=== PATIENT | female | born 1935 | race Caucasian/White ===

== ENCOUNTER 2016-10-03 13:50 | Emergency (ER) | payer OTHER ==
[~2016-10-03] VITALS: Wt 90.7 kg
[~2016-10-03 13:50] MED LIST: ASPIRIN ADULT L81 M1 PO; AVPAK AZITHROM250 MG PO; BUSPAR5 MG PO; DULCOLAX10 M1 RC; Fioricet 325 MG1 TAB PO; HYDROXYZINE PAM25 M1 PO; IBUPROFEN600 MG PO; LISINOPRIL20 MG PO; MELATONIN5 M1 SL; MILK OF MA400 MG/51 PO; NORCO 325 MG-51 TAB PO; OCUVITE1 TA1 PO; OMEPRAZOLE D/R20 MG PO; OMEPRAZOLE DR20 MG PO; PRILOSEC20 M2 PO; PRINIVIL20 M1 PO; SERTRALINE HYD100 MG PO; SYSTANE 0.3-0.415 ML OP; TYLENOL325 M2 PO; ZOLOFT100 MG PO; ZOLOFT50 MG PO
[2016-10-03] MEDS ORDERED: BUSPIRONE10 MG PO (14:05)
[2016-10-03 14:24] LABS: BASO % 0.5 % (0.0-1.0); EOS # 0.1 10*3/uL (0.0-0.4); HEMATOCRIT 41.8 % (37.0-47.0); HEMOGLOBIN 13.9 g/dl (12.0-16.0); LYMPH # 1.1 10*3/uL (1.3-4.4); LYMPH % 18.6 % (27.0-41.0); MEAN CELL VOLUME 91.5 fl (81.0-99.0); MEAN CORPUSCULAR HGB 30.4 pg (27.0-31.0); MEAN CORPUSCULAR HGB CONC 33.3 g/dl (33.0-37.0); MEAN PLATELET VOLUME 9.9 fl (9.6-12.3); MONO # 0.6 10*3/uL (0.1-1.0); MONO % 9.1 % (3.0-9.0); NEUT # 4.3 10*3/uL (2.3-7.9); NEUT % 70.6 % (47.0-73.0); PLATELET COUNT AUTOMATED 198 10*3/uL (130-400); RED BLOOD COUNT 4.57 10*6/uL (4.10-5.10); RED CELL DISTRI WIDTH 13.4 % (0-14.5)
[2016-10-03 14:34] LABS: PROTHROMBIN TIME 10.2 SECONDS (9.0-12.4)
[2016-10-03 14:39] LABS: ALBUMIN 3.6 gm/dl (3.1-4.5); ALKALINE PHOSPHATASE 82 U/L (45-117); BILIRUBIN, TOTAL 0.3 mg/dl (0.2-1.0); BUN 13 mg/dl (7-24); CARBON DIOXIDE 25 mmol/L (21-32); CHLORIDE 100 mmol/L (98-107); CKMB 1.2 ng/ml (0.5-3.6); CPK 61 U/L (26-192); EST GLOM FILT AFRICAN AMERICAN > 60 ml/min; GLUCOSE 77 mg/dL (65-99); LDH 168 U/L (84-246); MAGNESIUM 1.9 mg/dL (1.5-2.1); POTASSIUM 4.3 mmol/L (3.5-5.1); SGOT/AST 17 IU/L (3-35); SGPT/ALT 14 U/L (12-78); SODIUM 136 mmol/L (136-145); TOTAL PROTEIN 7.2 gm/dL (6.4-8.2)
[2016-10-03 14:40] LABS: TROPONIN I < 0.015 ng/ml (<0.045)
[2016-10-03 15:56] VITALS: BP 132/82
== END 2016-10-03 16:14 | disposition other institution (70) ==
LOC: ED 13:50
PROVIDERS: Physician Assistant
DX: R07.9 Chest pain, unspecified (principal); Z79.899 Other long term (current) drug therapy; Z88.0 Allergy status to penicillin; Z88.8 Allergy status to other drugs, medicaments and biological substances; Z79.82 Long term (current) use of aspirin

== ENCOUNTER 2016-10-15 19:00 | Emergency (ER) | payer OTHER ==
[~2016-10-15] VITALS: Ht 172.7 cm; Wt 81.6 kg
[~2016-10-15 19:00] MED LIST changes: +BUSPIRONE10 MG PO
[2016-10-15 19:02] VITALS: BP 122/66
[2016-10-15] MEDS ORDERED: OCUVITE1 TA1 PO (19:17)
== END 2016-10-15 20:46 ==
LOC: ED 19:00
DX: S00.03XA Contusion of scalp, initial encounter (principal); Z88.0 Allergy status to penicillin; Z88.8 Allergy status to other drugs, medicaments and biological substances; Z79.899 Other long term (current) drug therapy; Z79.82 Long term (current) use of aspirin; W01.198A Fall on same level from slipping, tripping and stumbling with subsequent striking against other object, initial encounter; Y93.89 Activity, other specified; Y92.89 Other specified places as the place of occurrence of the external cause; Y99.8 Other external cause status

== ENCOUNTER 2017-09-09 22:06 | Emergency (ER) | payer OTHER ==
[~2017-09-09] VITALS: Ht 167.6 cm; Wt 95.3 kg
[2017-09-09 22:08] VITALS: BP 157/94
[2017-09-09 22:57] LABS: BASO # 0.1 10*3/uL (0.0-0.1); BASO % 0.9 % (0.0-1.0); EOS # 0.1 10*3/uL (0.0-0.4); EOS % 2.1 % (1.0-4.0); HEMATOCRIT 40.5 % (37.0-47.0); HEMOGLOBIN 13.5 g/dl (12.0-16.0); LYMPH # 1.9 10*3/uL (1.3-4.4); LYMPH % 33.4 % (27.0-41.0); MEAN CELL VOLUME 91.8 fl (81.0-99.0); MEAN CORPUSCULAR HGB 30.6 pg (27.0-31.0); MEAN CORPUSCULAR HGB CONC 33.3 g/dl (33.0-37.0); MEAN PLATELET VOLUME 10.4 fl (9.6-12.3); MONO # 0.5 10*3/uL (0.1-1.0); MONO % 8.3 % (3.0-9.0); NEUT # 3.2 10*3/uL (2.3-7.9); PLATELET COUNT AUTOMATED 187 10*3/uL (130-400); RED BLOOD COUNT 4.41 10*6/uL (4.10-5.10); RED CELL DISTRI WIDTH 13.5 % (0-14.5); WHITE BLOOD COUNT 5.8 10*3/uL (4.8-10.8)
[2017-09-09 23:07] LABS: ACT PARTIAL THROMBO TIME 24.4 SECONDS (20.8-31.5)
== END 2017-09-09 22:44 | disposition home or self-care (01) ==
LOC: ED 22:06
PROVIDERS: Emergency Medicine Emergency Medical Services
DX: R04.0 Epistaxis (principal); F03.90 Unspecified dementia, unspecified severity, without behavioral disturbance, psychotic disturbance, mood disturbance, and anxiety; Z90.710 Acquired absence of both cervix and uterus; Z98.890 Other specified postprocedural states; Z79.899 Other long term (current) drug therapy; Z88.0 Allergy status to penicillin; Z88.8 Allergy status to other drugs, medicaments and biological substances; Z79.82 Long term (current) use of aspirin

== ENCOUNTER 2017-09-19 00:06 | Emergency (ER) | payer OTHER ==
[~2017-09-19] VITALS: Wt 90.7 kg
[2017-09-19 00:42] LABS: BASO % 0.6 % (0.0-1.0); EOS # 0.1 10*3/uL (0.0-0.4); EOS % 1.9 % (1.0-4.0); HEMOGLOBIN 13.1 g/dl (12.0-16.0); LYMPH # 2.1 10*3/uL (1.3-4.4); LYMPH % 33.4 % (27.0-41.0); MEAN CELL VOLUME 93.2 fl (81.0-99.0); MEAN CORPUSCULAR HGB 30.5 pg (27.0-31.0); MEAN CORPUSCULAR HGB CONC 32.8 g/dl (33.0-37.0); MEAN PLATELET VOLUME 10.2 fl (9.6-12.3); MONO # 0.5 10*3/uL (0.1-1.0); MONO % 8.1 % (3.0-9.0); NEUT # 3.5 10*3/uL (2.3-7.9); NEUT % 55.7 % (47.0-73.0); PLATELET COUNT AUTOMATED 168 10*3/uL (130-400); RED BLOOD COUNT 4.29 10*6/uL (4.10-5.10); RED CELL DISTRI WIDTH 13.4 % (0-14.5); WHITE BLOOD COUNT 6.2 10*3/uL (4.8-10.8)
[2017-09-19 00:48] LABS: BILIRUBIN NEGATIVE (NEGATIVE); BLOOD NEGATIVE (NEGATIVE); CLARITY CLEAR (CLEAR); COLOR YELLOW (YELLOW); GLUCOSE NEGATIVE (NEGATIVE); KETONE NEGATIVE (NEGATIVE); LEUKO ESTERASE 1+ (NEGATIVE); NITRITE NEGATIVE (NEGATIVE); SPECIFIC GRAVITY <= 1.005 (1.005-1.030); UROBILINOGEN 0.2 E.U./dl (0.2-1.0)
[2017-09-19 00:51] LABS: ACT PARTIAL THROMBO TIME 24.1 SECONDS (20.8-31.5); INTERNATIONAL NORM RATIO 0.9 (2.0-3.5)
[2017-09-19 00:58] LABS: ALBUMIN 3.8 gm/dl (3.1-4.5); ALKALINE PHOSPHATASE 84 U/L (45-117); BUN 15 mg/dl (7-24); CHLORIDE 99 mmol/L (98-107); CREATININE 0.77 mg/dL (0.55-1.02); POTASSIUM 4.2 mmol/L (3.5-5.1); SGOT/AST 14 IU/L (3-35); SGPT/ALT 13 U/L (12-78); SODIUM 135 mmol/L (136-145); TOTAL PROTEIN 7.2 gm/dL (6.4-8.2)
[2017-09-19 00:59] LABS: TROPONIN I < 0.015 ng/ml (<0.045)
[2017-09-19 02:00] VITALS: BP 120/72
== END 2017-09-19 02:19 | disposition other institution (70) ==
LOC: ED 00:06
PROVIDERS: Physician Assistant
DX: M25.551 Pain in right hip (principal); M25.511 Pain in right shoulder; G30.9 Alzheimer's disease, unspecified; F02.80 Dementia in other diseases classified elsewhere, unspecified severity, without behavioral disturbance, psychotic disturbance, mood disturbance, and anxiety; Z90.710 Acquired absence of both cervix and uterus; Z98.890 Other specified postprocedural states; Z79.899 Other long term (current) drug therapy; Z88.0 Allergy status to penicillin; Z88.8 Allergy status to other drugs, medicaments and biological substances; Z79.82 Long term (current) use of aspirin; W19.XXXA Unspecified fall, initial encounter; Y93.89 Activity, other specified; Y92.128 Other place in nursing home as the place of occurrence of the external cause; Y99.9 Unspecified external cause status

== ENCOUNTER 2017-11-25 10:30 | Emergency (ER) | payer OTHER ==
[~2017-11-25] VITALS: Wt 77.1 kg
--- NOTE | ~2017-11-25 | EKG ---
[place], [place] ELECTROCARDIOGRAM REPORT NAME: FABIOLA SERNA UNIT #: [id number] ROOM: DOCTOR: EPIPHANY DRAFT REPORT BIRTHDATE: [birth year] [facility] Test Date: 2017-11-25 Test Time: 10:39:10 Pat Name: FABIOLA SERNA Department: Room: Gender: F Staffing Executive: JAMAL : 1935 Requested By: JENNIFER GILLIS Order Number: [id number] Reading MD: Rebel Live MD Measurements Intervals [place] Rate: 64 P: 31 SC: 182 QRS: 71 QRSD: 80 T: 44 QT: 427 QTc: 441 Interpretive Statements Sinus rhythm Low voltage, extremity leads Electronically Signed On 11-28-2017 8:17:33 PDT by Rebel Live MD CM:EKGRPT:ELECTROCARDIOGRAM REPORT [id number] JENNIFER BARRAGAN DRAFT REPORT JENNIFER GILLIS M.D.
--- NOTE | ~2017-11-25 | EKG ---
[place], [place] ELECTROCARDIOGRAM REPORT NAME: FABIOLA SERNA UNIT #: [id number] ROOM: DOCTOR: EPIPHANY DRAFT REPORT BIRTHDATE: [birth year] [facility] Test Date: 2017-11-25 Test Time: 13:17:31 Pat Name: FABIOLA SERNA Department: Room: Gender: F Microwave Technician: FELICIANO : 1935 Requested By: JENNIFER GILLIS Order Number: [id number] Reading MD: Rebel Live MD Measurements Intervals [place] Rate: 68 P: 67 SD: 173 QRS: 27 QRSD: 80 T: 47 QT: 415 QTc: 442 Interpretive Statements Sinus rhythm Borderline low voltage, extremity leads Electronically Signed On 11-28-2017 8:18:30 PDT by Rebel Live MD CM:EKGRPT:ELECTROCARDIOGRAM REPORT 1317 JENNIFER BARRAGAN DRAFT REPORT JENNIFER GILLIS M.D.
[2017-11-25] MEDS ORDERED: BUSPAR5 MG PO (10:53)
[2017-11-25] MEDS ORDERED: AFRIN15 ML NAS (10:55)
[2017-11-25] MEDS ORDERED: NEURONTIN100 MG PO (10:56)
[2017-11-25] MEDS ORDERED: ONDANSETRON8 MG PO (10:57)
[2017-11-25] MEDS ORDERED: PROSIGHT TABLE1 EACH PO (10:59)
[2017-11-25] MEDS ORDERED: TRAZODONE50 MG PO (11:00)
[2017-11-25 11:34] LABS: BASO % 0.6 % (0.0-1.0); EOS # 0.1 10*3/uL (0.0-0.4); EOS % 1.5 % (1.0-4.0); HEMATOCRIT 41.8 % (37.0-47.0); HEMOGLOBIN 13.9 g/dl (12.0-16.0); LYMPH # 1.2 10*3/uL (1.3-4.4); LYMPH % 23.2 % (27.0-41.0); MEAN CELL VOLUME 93.3 fl (81.0-99.0); MEAN CORPUSCULAR HGB CONC 33.3 g/dl (33.0-37.0); MONO # 0.5 10*3/uL (0.1-1.0); MONO % 8.6 % (3.0-9.0); NEUT # 3.4 10*3/uL (2.3-7.9); NEUT % 65.7 % (47.0-73.0); PLATELET COUNT AUTOMATED 192 10*3/uL (130-400); RED BLOOD COUNT 4.48 10*6/uL (4.10-5.10); WHITE BLOOD COUNT 5.2 10*3/uL (4.8-10.8)
[2017-11-25 11:43] LABS: ACT PARTIAL THROMBO TIME 21.6 SECONDS (20.8-31.5); INTERNATIONAL NORM RATIO 0.9 (2.0-3.5)
[2017-11-25 11:50] LABS: ALBUMIN 3.8 gm/dl (3.1-4.5); ALKALINE PHOSPHATASE 78 U/L (45-117); BUN 8 mg/dl (7-24); CHLORIDE 97 mmol/L (98-107); CREATININE 0.67 mg/dL (0.55-1.02); POTASSIUM 4.2 mmol/L (3.5-5.1); SGOT/AST 12 IU/L (3-35); SGPT/ALT 15 U/L (12-78); SODIUM 131 mmol/L (136-145); TOTAL PROTEIN 7.3 gm/dL (6.4-8.2)
[2017-11-25 11:52] LABS: TROPONIN I < 0.015 ng/ml (<0.045)
[2017-11-25 12:00] VITALS: BP 132/72
== END 2017-11-25 13:30 | disposition home or self-care (01) ==
LOC: ED 10:30
PROVIDERS: Nurse Practitioner Family
DX: R07.89 Other chest pain (principal); Z90.710 Acquired absence of both cervix and uterus; Z88.0 Allergy status to penicillin; Z98.890 Other specified postprocedural states; Z79.899 Other long term (current) drug therapy; Z88.1 Allergy status to other antibiotic agents; Z79.82 Long term (current) use of aspirin

== ENCOUNTER 2018-03-09 18:08 | Inpatient (IN) | payer OTHER ==
[~2018-03-09] VITALS: Wt 56.7 kg
--- NOTE | ~2018-03-09 | WRIGHTHP ---
[place], [place] PATIENT HISTORY AND PHYSICAL EXAM [id number] UNIT #: [id number] ROOM: 420 DOCTOR: JENY DIAZ MD BIRTHDATE: [birth year] DOS: 03/09/2018 HISTORY OF PRESENT ILLNESS: The patient is an 82-year-old female with a past medical history of: 1. COPD. 2. Coronary artery disease of the [place] vessels. 3. GERD and esophagitis. 4. Old age and disability and ambulatory dysfunction. 5. Benign essential hypertension. 6. Generalized anxiety disorder. 7. Late onset Alzheimer's type dementia and some behavioral issues. The patient started having what appeared like generalized seizures at [facility] where she stays. The patient was unable to swallow and maintained a comfort care code status. Treatment was ordered, but could not be performed, so she was ultimately transferred to the Emergency Department where CT of the head showed a heterogenous attenuation of the left temporal lobe, possible mass in the left temporal area measuring 4 x 3.5 cm, not seen before. An MRI of the brain was recommended and the patient was admitted for control of her seizures. The patient was given 1 gram of IV Keppra in the Emergency Department, but she continued to have unconsciousness and seizures and paralysis. After admission, the patient was loaded with IV dose of Depakote and she still continues to have seizures and remains unresponsive. The patient was given IV Ativan with same results. Case was discussed with Sherie, the patient's appointed guardian and she has agreed to hospice care. I will do an MRI of the brain to confirm the diagnosis and then patient will be evaluated by hospice. No recent chest pain. No increasing shortness of breath or any other GI or urinary symptoms. FAMILY HISTORY: Noncontributory. MEDICATIONS: The patient is presently on Depakote and lorazepam. Her long term medications were Nasacort, Tylenol, buspirone, gabapentin, Keppra which was never given magnesium, Zofran, Zoloft, trazodone and Dulcolax. PHYSICAL EXAMINATION: VITAL SIGNS: Blood pressure 167/90, heart rate 85 beats per minute, breathing 19 times per minute, temperature 98 degrees Fahrenheit. GENERAL: The patient is unresponsive with head tilted to the left. HEENT AND NECK: Extraocular movements are intact. Sclerae are anicteric. Oral mucosa is moist and clean. No obvious facial weakness. Neck is supple without any lymphadenopathy. No thyromegaly. No JVD. No carotid arterial bruits. CARDIOVASCULAR SYSTEM: Shows irregular heart rate. S1 and S2 normally audible. No significant murmur or any other abnormal cardiac sounds. ABDOMEN: Soft, nontender. No obvious organomegaly. Bowel sounds are present. No obvious herniation. CENTRAL NERVOUS SYSTEM: The patient is unresponsive and not moving her extremities. She is having some jerking movements of her head. [place], [place] PATIENT HISTORY AND PHYSICAL EXAM NAME: FABIOLA SERNA UNIT #: [id number] ROOM: 420 DOCTOR: JENY DIAZ MD BIRTHDATE: [birth year] LABORATORY DATA: Depakote level now therapeutic at 64.6. Chest x-ray is showing no acute abnormality. CBC was normal. CT of the head results as mentioned above. IMPRESSION AND PLAN: 1. Generalized seizures and unconsciousness. 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 I am reconfirming this with MRI of the brain. Case discussed with Sherie, patient's appointed guardian and she is agreeing to end of life care with hospice, who will evaluate the patient. If MRI of the brain confirms some mass, she will be readmitted to the hospital as a hospice inpatient. 2. Recent infection with Escherichia coli involving the urine. Cultures were performed and treated 4 days back with antibiotic. 3. No leukocytosis. 4. Coronary artery disease of the [place] vessels, without chest pain. 5. Chronic obstructive pulmonary disease and centrilobular emphysema, presently asymptomatic. 6. Benign essential hypertension with elevated blood pressures. I will start her on a clonidine patch. 7. Late onset Alzheimer's type dementia and some mental confusion and behavioral disturbances. The patient is presently unresponsive. 8. We will take bedsore precautions, turn patient every 2 hours and take fall precautions. More than 1 hour time spent on patient's management. JENY DIAZ MD CM:HISPHYS:PATIENT HISTORY AND PHYSICAL EXAMINATION [id number] JENY DIAZ MD 03/10/18 1203 interface
[~2018-03-09 18:08] MED LIST changes: +AFRIN15 ML NAS; +NEURONTIN100 MG PO; +ONDANSETRON8 MG PO; +PROSIGHT TABLE1 EACH PO; +TRAZODONE50 MG PO
[2018-03-09 18:11] VITALS: BP 169/97
[2018-03-09 18:54] LABS: BILIRUBIN NEGATIVE (NEGATIVE); BLOOD NEGATIVE (NEGATIVE); CLARITY CLOUDY (CLEAR); COLOR YELLOW (YELLOW); GLUCOSE NEGATIVE (NEGATIVE); KETONE TRACE (NEGATIVE); LEUKO ESTERASE 1+ (NEGATIVE); NITRITE POSITIVE (NEGATIVE); SPECIFIC GRAVITY 1.025 (1.005-1.030); UROBILINOGEN 0.2 E.U./dl (0.2-1.0)
[2018-03-09 19:03] LABS: HEMATOCRIT 44.3 % (37.0-47.0); HEMOGLOBIN 15.1 g/dl (12.0-16.0); MEAN CORPUSCULAR HGB CONC 34.1 g/dl (33.0-37.0); PLATELET COUNT AUTOMATED 300 10*3/uL (130-400); RED BLOOD COUNT 4.87 10*6/uL (4.10-5.10); RED CELL DISTRI WIDTH 13.8 % (0-14.5); WHITE BLOOD COUNT 9.4 10*3/uL (4.8-10.8)
[2018-03-09 19:04] LABS: BACTERIA 3+
[2018-03-09 19:05] LABS: RBC 0-2 rbc/hpf (0-2)
[2018-03-09 19:07] VITALS: BP 163/67
[2018-03-09 19:18] LABS: ALBUMIN 3.3 gm/dl (3.1-4.5); ALKALINE PHOSPHATASE 72 U/L (45-117); BUN 29 mg/dl (7-24); CHLORIDE 98 mmol/L (98-107); CREATININE 0.76 mg/dL (0.55-1.02); POTASSIUM 3.7 mmol/L (3.5-5.1); SGOT/AST 17 IU/L (3-35); SGPT/ALT 17 U/L (12-78); SODIUM 136 mmol/L (136-145); TOTAL PROTEIN 7.5 gm/dL (6.4-8.2)
[2018-03-09 19:29] LABS: PLATELET SUFFICIENCY NORMAL (NORMAL); TOTAL CELLS COUNTED 100 #CELLS
[2018-03-09 19:57] VITALS: BP 179/97
[2018-03-09 20:15] VITALS: BP 180/88
[2018-03-09 20:30] VITALS: BP 180/88
[2018-03-09] MEDS ORDERED: MAPAP500 MG PO (21:30)
[2018-03-09] MEDS ORDERED: BUSPAR5 MG PO (21:31)
[2018-03-09] MEDS ORDERED: DULCOLAX10 M1 R (21:31)
[2018-03-09] MEDS ORDERED: NEURONTIN100 MG PO (21:32)
[2018-03-09] MEDS ORDERED: MILK OF MA400 MG/5 M PO (21:33)
[2018-03-09] MEDS ORDERED: KEPPRA500 MG/5 M PO (21:34)
[2018-03-09] MEDS ORDERED: NASAL DECONGEST15 ML NAS (21:35)
[2018-03-09] MEDS ORDERED: AFRIN15 ML NAS (21:35)
[2018-03-09] MEDS ORDERED: TRAZODONE50 MG PO (21:36)
[2018-03-09] MEDS ORDERED: SERTRALINE HYDR50 MG PO (21:36)
[2018-03-09] MEDS ORDERED: ZOFRAN8 M1 PO (21:37)
[2018-03-10] VITALS: BP 179/95
[2018-03-10 08:00] VITALS: BP 167/90
[2018-03-10 12:00] VITALS: BP 166/91
[2018-03-10 16:00] VITALS: BP 170/96
== END 2018-03-10 16:48 | disposition hospice, home (50) | DRG 80 ==
LOC: ED 18:08 → EDHOLD 19:49 → 4E 20:22
PROVIDERS: Emergency Medicine
DX: G93.6 Cerebral edema (principal); I63.9 Cerebral infarction, unspecified; F02.81 Dementia in other diseases classified elsewhere, unspecified severity, with behavioral disturbance; R56.9 Unspecified convulsions; G30.1 Alzheimer's disease with late onset; I10 Essential (primary) hypertension; I25.10 Atherosclerotic heart disease of native coronary artery without angina pectoris; K21.0 Gastro-esophageal reflux disease with esophagitis; F41.1 Generalized anxiety disorder; J43.2 Centrilobular emphysema; G93.89 Other specified disorders of brain; Z66 Do not resuscitate; Z51.5 Encounter for palliative care; Z87.81 Personal history of (healed) traumatic fracture; Z87.440 Personal history of urinary (tract) infections; Z86.73 Personal history of transient ischemic attack (TIA), and cerebral infarction without residual deficits; Z91.81 History of falling; Z88.0 Allergy status to penicillin; Z88.6 Allergy status to analgesic agent; Z90.710 Acquired absence of both cervix and uterus; Z90.49 Acquired absence of other specified parts of digestive tract; Z90.3 Acquired absence of stomach [part of]; Z82.49 Family history of ischemic heart disease and other diseases of the circulatory system

== ENCOUNTER 2018-03-10 16:59 | Inpatient (IN) | payer OTHER ==
[~2018-03-10] VITALS: Ht 157.5 cm; Wt 56.7 kg
--- NOTE | ~2018-03-10 | WRIGHTHP ---
[place], [place] PATIENT HISTORY AND PHYSICAL EXAM [id number] UNIT #: [id number] ROOM: 420 DOCTOR: JENY DIAZ MD BIRTHDATE: [birth year] DOS: HISTORY OF PRESENT ILLNESS: The patient readmitted under the care of community hospice on 03/10/2018 after being discharged to the regular hospital patient for end-of-life care: 1. 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 2. Chronic obstructive pulmonary disease. 3. Coronary artery disease of the [place] vessels. 4. Gastroesophageal reflux disease and esophagitis. 5. Old age disability and ambulatory dysfunction. 6. Benign essential hypertension. 7. Generalized anxiety disorder. 8. Late onset Alzheimer's type dementia and some behavioral issues. The patient was having seizures with unconsciousness and was found to have a left temporal infarct as well as edema. The patient was unable to swallow any medication and was given loading dose of Keppra in the Emergency Department, but the patient continued to have seizures after which she was given a loading dose of Depakote and the patient was still having seizures. The patient was given Ativan, which did not stop the seizures. 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 [facility] hospice has accepted the patient and the patient was discharged from regular hospital admission and readmitted as in hospice inpatient at [facility] yesterday. The patient was started on morphine, kept on intravenous Keppra and lorazepam and the patient's seizures appear to have resolved. The patient is sleeping comfortably. The patient's daughter is present with her. REVIEW OF SYSTEMS: LUNGS: No increasing shortness of breath. GASTROINTESTINAL: No nausea, vomiting, diarrhea or constipation. CARDIOVASCULAR: No chest pains or palpitations. FAMILY HISTORY: Noncontributory. PRESENT MEDICATIONS: Morphine, lorazepam, dexamethasone and Keppra. ALLERGIES: Known allergies to QUININE and PENICILLIN. FAMILY HISTORY: Noncontributory. PHYSICAL EXAMINATION: GENERAL: The patient is sedated without seizures now and comfortable. The patient is unresponsive and not moving. VITAL SIGNS: Blood pressure 143/80, heart rate 109 beats per minute, breathing 24 times per minute, afebrile. HEENT AND NECK: Extraocular movements are intact. Sclerae are anicteric. Oral mucosa is moist and clean. No obvious facial weakness. Neck is supple without any lymphadenopathy. No thyromegaly. No JVD. No carotid arterial bruits. [place], [place] PATIENT HISTORY AND PHYSICAL EXAM NAME: FABIOLA SERNA UNIT #: [id number] ROOM: 420 DOCTOR: JENY DAIZ MD BIRTHDATE: [birth year] LUNGS: Clear to auscultation. No wheezing. No rhonchi. CARDIOVASCULAR SYSTEM: Heart rate is regular in rate and rhythm. S1 and S2 normally audible. No significant murmur or any other abnormal cardiac sounds. ABDOMEN: Soft, nontender. No obvious organomegaly. Bowel sounds are present. No obvious herniation. EXTREMITIES: Without significant cyanosis or edema. Warm to touch. CENTRAL NERVOUS SYSTEM: Alert and oriented x 3. Cranial nerves II-XII are intact. Speech is normal. The patient is able to move all extremities. Normal muscle strength. Deep tendon reflexes are equal on both sides. Plantars were downgoing. IMPRESSION: The patient for end-of-life care after left temporal infarct and uncontrolled seizures, which have not been controlled with Ativan, Keppra, morphine, and the patient receiving corticosteroids. Irregular dose of morphine is being added and the patient being watched carefully at the hospital as an inpatient. Benign essential hypertension with better controlled blood pressures now. The patient is unconscious and unresponsive, recent urinary tract infection with gram-negative bacilli and was treated earlier with antibiotics. JENY DIAZ MD CM:HISPHYS:PATIENT HISTORY AND PHYSICAL EXAMINATION [id number] JENY DIAZ MD 03/11/18 1700 interface
--- NOTE | ~2018-03-10 | PR ---
[place], [place] PROGRESS NOTE NAME: FABIOLA SERNA UNIT #: [id number] ROOM: 420 DOCTOR: JENY DIAZ MD BIRTHDATE: [birth year] DOS: 03/12/2018 SUBJECTIVE: The patient remains unresponsive and appears comfortable with sedation. PHYSICAL EXAMINATION: GENERAL APPEARANCE: The patient is unresponsive and breathing somewhat heavy with facial bruising, no seizures. VITAL SIGNS: Blood pressure 151/91, heart rate 112 beats per minute, breathing 24 times per minute, temperature 98 degrees Fahrenheit. HEENT AND NECK: Exam within normal limits. CARDIOVASCULAR SYSTEM: Heart rate is regular in rate and rhythm. S1 and S2 normally audible. LUNGS: Clear to auscultation. ABDOMEN: Soft, nontender. No obvious organomegaly. Bowel sounds are present. EXTREMITIES: Without significant cyanosis or edema. IMPRESSION: 1. The patient with left temporal infarct and edema with nonstop seizures, which have now been controlled with Ativan, Keppra and morphine and the patient receiving corticosteroids, appears to be comfortable, but deeply sedated and nonresponsive. 2. Benign essential hypertension. Blood pressures are staying normal. 3. Urine culture has grown Escherichia coli, which was treated earlier. No fever and no other treatment required. JENY DIAZ MD CM:PNTRANS [id number] JENY DIAZ MD 03/13/18 0504 interface
[~2018-03-10 16:59] MED LIST changes: +DULCOLAX10 M1 R; +KEPPRA500 MG/5 M PO; +MAPAP500 MG PO; +MILK OF MA400 MG/5 M PO; +NASAL DECONGEST15 ML NAS; +SERTRALINE HYDR50 MG PO; +ZOFRAN8 M1 PO
[2018-03-10 20:00] VITALS: BP 170/92
[2018-03-11] VITALS: BP 154/89
[2018-03-11 08:00] VITALS: BP 143/80
[2018-03-11 16:00] VITALS: BP 155/92
[2018-03-12] VITALS: BP 125/86
[2018-03-12 08:00] VITALS: BP 150/96
[2018-03-12 12:00] VITALS: BP 143/92
[2018-03-12 16:00] VITALS: BP 151/91
[2018-03-12 20:00] VITALS: BP 153/94
[2018-03-13] VITALS: BP 149/80
[2018-03-13 07:50] VITALS: BP 112/87
== END 2018-03-13 08:19 | disposition expired | DRG 64 ==
LOC: 4E 16:59
DX: I63.9 Cerebral infarction, unspecified (principal); G93.6 Cerebral edema; F02.81 Dementia in other diseases classified elsewhere, unspecified severity, with behavioral disturbance; I10 Essential (primary) hypertension; Z51.5 Encounter for palliative care; J44.9 Chronic obstructive pulmonary disease, unspecified; I25.10 Atherosclerotic heart disease of native coronary artery without angina pectoris; B96.20 Unspecified Escherichia coli [E. coli] as the cause of diseases classified elsewhere; K21.0 Gastro-esophageal reflux disease with esophagitis; F41.1 Generalized anxiety disorder; G30.1 Alzheimer's disease with late onset; Z88.0 Allergy status to penicillin; Z88.1 Allergy status to other antibiotic agents; Z87.440 Personal history of urinary (tract) infections